=== PATIENT | male | born 1965 | race Caucasian/White ===

== ENCOUNTER 2017-07-15 20:19 | Outpatient (CLI) ==
[2014-09-01 12:18] VITALS: BMI 33.0
== END 2017-07-15 20:50 | disposition short-term general hospital (02) ==
LOC: AMBL 20:19
PROVIDERS: ATTEND Internal Medicine Geriatric Medicine
DX: R53.1 Weakness (principal); R42 Dizziness and giddiness; R00.0 Tachycardia, unspecified

== ENCOUNTER 2017-12-08 20:56 | Emergency (ER) ==
[2017-12-08 21:05] VITALS: BP 100/67; TEMP 98.6; BMI 32.0
--- NOTE | 2017-12-08 21:24 | ED.PDOC ---
General ED Provider: Dr. PHILL FLETCHER-ER Chief Complaint: Non-specific Complaint Stated Complaint: ema been tired for a month Time Seen by Physician: 21:22 Mode of Arrival: Walk-In Information Source: Patient Exam Limitations: No limitations Primary Care Provider: BRENT BIRD Nursing and Triage Documentation Reviewed and Agree: Yes Does patient meet sepsis criteria?: No System Inflammatory Response Syndrome: Not Applicable Sepsis Protocol: For patient's 13 years and over: Temp is 96.8 and below OR 101 and greater Pulse >90 BPM Resp >20/minute Acutely Altered Mental Status Are patient's symptoms suggestive of a new infection, such as: -Pneumonia -Skin, Soft Tissue -Endocarditis -UTI -Bone, Joint Infection -Implantable Device -Acute Abdominal Infection -Wound Infection -Meningitis -Blood Stream Catheter Infection -Unknown Miscellaneous Complaint Exam - Complex/Multi-System Complaint/Exam Onset/Duration: 4 weeks Symptoms Are: Still present Initial Severity: Mild Current Severity: Mild Location of Pain: no pain Associated Signs and Symptoms: Reports: Weakness. 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, Prior MRSA, Prior VRE, Recent trauma, Remote trauma Recent Echo/LV Function: No JVD Present: No Tachypnea Present: No Stridor Present: No Abdominal Findings: Present: Normal findings Glascow Coma Scale (see protocol): 15 Meningeal Signs Positive: No Focal Weakness: Present: None Focal Sensory Loss: Present: None Gait: Normal Gag Reflex Present: Yes Babinski Sign: Negative Right, Negative Left Skin Findings: Present: Normal findings Joint Swelling Present: No In-Dwelling Device Present: No Quality Indicator For Non-Traumatic Chest Pain/Syncope: EKG Performed Review of Systems - Review Of Systems Constitutional: Reports: No symptoms Eyes: Reports: No symptoms Ears, Nose, Mouth, Throat: Reports: No symptoms Respiratory: Reports: No symptoms, Other (snoring) Cardiac: Reports: No symptoms GI: Reports: No symptoms : Reports: No symptoms Musculoskeletal: Reports: No symptoms Skin: Reports: No symptoms Neurological: Reports: No symptoms Endocrine: Reports: No symptoms Hematologic/Lymphatic: Reports: No symptoms All Other Systems: Reviewed and Negative Past Medical History - Past Medical History Previously Healthy: No Endocrine: Reports: None Cardiovascular: Reports: None Respiratory: Reports: Other Hematological: Reports: None Gastrointestinal: Reports: None Genitourinary: Reports: None Neuro/Psych: Reports: None Musculoskeletal: Reports: Unknown 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 ) Other Pertinent Past Medical History: cancer - Surgical History General Surgical History: Reports: Tonsillectomy, Orthopedic (neck surgery), Other (EAR SURGERY) - Family History Family History: Reports: Unknown - Social History Smoking Status: Never smoker Hx Substance Use: No Alcohol Screening: Occasionally - Immunizations Tetanus Shot up to Date: Yes Physical Exam - Physical Exam Appearance: Well-appearing, No pain distress, Well-nourished Eyes: ANDRE, EOMI, Conjunctiva clear ENT: Ears normal, Nose normal, Oropharynx normal Neck: Supple Respiratory: Airway patent, Breath sounds clear, Breath sounds equal, Respirations nonlabored Cardiovascular: RRR, Pulses normal, No rub, No murmur GI/: Soft, Nontender, No masses, Bowel sounds normal, No Organomegaly Musculoskeletal: Normal strength, ROM intact, No edema, No calf tenderness Skin: Warm, Dry, Normal color Neurological: Sensation intact, Motor intact, Reflexes intact, Cranial nerves intact, Alert, Oriented Psychiatric: Affect appropriate, Mood appropriate Interpretation - EKG Interpretation Time of EKG #1: 21:25 Rate: Normal Rhythm: Sinus Ectopy: None [place]: NL ST Segment: Normal Interpretation: normal sinus rythym Critical Care Note - Critical Care Note Total Time (mins): 0 Course - Course Hematology/Chemistry: 12/08/17 21:20 12/08/17 21:20 Orders, Labs, Meds: Lab Review 12/08/17 12/08/17 12/08/17 21:15 21:15 21:20 WBC 8.17 RBC 4.71 Hgb 14.3 Hct 41.2 L MCV 87.5 MCH 30.4 MCHC 34.7 RDW Coeff of Cedric 12.4 Plt Count 158 Immature Gran % (Auto) 0.4 Neut % (Auto) 53.4 Lymph % (Auto) 37.1 [place] % (Auto) 5.8 Eos % (Auto) 2.7 Baso % (Auto) 0.6 Immature Gran # (Auto) 0.0 Neut # (Auto) 4.4 Lymph # (Auto) 3.0 [place] # (Auto) 0.5 Eos # (Auto) 0.2 Baso # (Auto) 0.1 Sodium Potassium Chloride Carbon Dioxide Anion Gap BUN Creatinine Estimated GFR (MDRD) BUN/Creatinine Ratio Glucose Hemoglobin A1c Calcium Total Bilirubin AST ALT Alkaline Phosphatase Total Protein Albumin Globulin Albumin/Globulin Ratio TSH Urine Color Yellow Urine Clarity Clear Urine pH 7.0 Ur Specific [place] 1.025 Urine Protein Negative Urine Glucose (UA) Negative Urine Ketones Negative Urine Blood Negative Urine Nitrite Negative Urine Bilirubin Negative Urine Urobilinogen 0.2 Ur Leukocyte Esterase Negative Urine Opiates Screen Negative Ur Oxycodone Screen Negative Urine Methadone Screen Negative Ur Propoxyphene Screen Negative Ur Barbiturates Screen Negative U Tricyclic Antidepress Negative Ur Phencyclidine Scrn Negative Ur Amphetamine Screen Negative U Methamphetamines Scrn Negative U Benzodiazepines Scrn Negative Urine Cocaine Screen Negative U Cannabinoids Screen Negative 12/08/17 12/08/17 21:20 21:20 WBC RBC Hgb Hct MCV MCH MCHC RDW Coeff of Cedric Plt Count Immature Gran % (Auto) Neut % (Auto) Lymph % (Auto) [place] % (Auto) Eos % (Auto) Baso % (Auto) Immature Gran # (Auto) Neut # (Auto) Lymph # (Auto) [place] # (Auto) Eos # (Auto) Baso # (Auto) Sodium 135.4 L Potassium 3.60 Chloride 101.2 Carbon Dioxide 28.0 Anion Gap 9.80 BUN 21.9 H Creatinine 1.09 Estimated GFR (MDRD) 72.00 BUN/Creatinine Ratio 20.09 Glucose 122.3 H Hemoglobin A1c 5.37 Calcium 9.25 Total Bilirubin 0.28 AST 17.9 ALT 15.2 Alkaline Phosphatase 66.7 Total Protein 6.50 Albumin 4.16 Globulin 2.34 Albumin/Globulin Ratio 1.77 TSH 1.440 Urine Color Urine Clarity Urine pH Ur Specific [place] Urine Protein Urine Glucose (UA) Urine Ketones Urine Blood Urine Nitrite Urine Bilirubin Urine Urobilinogen Ur Leukocyte Esterase Urine Opiates Screen Ur Oxycodone Screen Urine Methadone Screen Ur Propoxyphene Screen Ur Barbiturates Screen U Tricyclic Antidepress Ur Phencyclidine Scrn Ur Amphetamine Screen U Methamphetamines Scrn U Benzodiazepines Scrn Urine Cocaine Screen U Cannabinoids Screen Orders Category Date Time Status EKG-(ED ONLY) Stat CARDIO 12/08/17 20:58 Ordered CBC W/ AUTO DIFF Stat LAB 12/08/17 21:20 Completed COMPREHENSIVE METABOLIC PANEL Stat LAB 12/08/17 21:20 Completed HEMOGLOBIN A1C Stat LAB 12/08/17 21:20 Completed TSH [THYROID STIMULATING HORMONE] Stat LAB 12/08/17 21:20 Completed URINALYSIS C & S IF INDICATED Stat LAB 12/08/17 21:15 Completed URINE DRUG SCREEN (RAPID FOR ED) [DRUG SCREEN, URINE, LAB 12/08/17 21:15 Completed RAPID] Stat Vital Signs: Temp Pulse Resp BP Pulse Ox 12/08/17 21:01 98.6 F 74 20 100/67 95 Departure - Departure Time of Disposition: 22:14 Disposition: HOME SELF-CARE Discharge Problem: Fatigue Qualifiers: Fatigue type: unspecified Qualified Code(s): R53.83 - Other fatigue Instructions: Fatigue (ED) Condition: Good Pt referred to PMD for follow-up: Yes IPMP verified?: No Additional Instructions: f/u with your pcp for further testing--consider sleep study with snoring and daytime fatigue Allergies/Adverse Reactions: Allergies mold Adverse Reaction (Uncoded 12/08/17 21:05) Home Medications: Ambulatory Orders Ropinirole HCl [Requip] 1 mg PO BEDTIME 05/20/14 Bupropion HCl [Bupropion HCl Sr] 150 mg PO BID 09/01/14 Gabapentin 400 mg PO TID PRN 09/01/14 Escitalopram Oxalate [Lexapro] 10 mg PO DAILY #30 09/03/15 Atorvastatin Calcium [Lipitor] 20 mg PO DAILY 12/08/17 Hydrochlorothiazide 25 mg PO DAILY 12/08/17 Disposition Discussed With: Patient, Family
== END 2017-12-08 22:17 | disposition home or self-care (01) ==
LOC: ED 20:56
DX: R53.83 Other fatigue (principal); R53.1 Weakness; Z79.899 Other long term (current) drug therapy
CPT/HCPCS: 36415; 80053; 80306; 81001; 83036; 84443; 85025; 93005; 93010; 99283

== ENCOUNTER 2018-05-27 19:15 | Emergency (ER) ==
[2018-05-27 19:27] VITALS: BP 117/78; TEMP 97.4; BMI 31.6
--- NOTE | 2018-05-27 20:51 | ED.PDOC ---
General ED Provider: Dr. PHILL FLETCHER-ER Chief Complaint: Non-specific Complaint Stated Complaint: my bp was up at home--- Time Seen by Physician: 19:20 Mode of Arrival: Walk-In Information Source: Patient Exam Limitations: No limitations Primary Care Provider: DAVIDSON RIVERA Nursing and Triage Documentation Reviewed and Agree: Yes Does patient meet sepsis criteria?: No System Inflammatory Response Syndrome: Not Applicable Sepsis Protocol: For patient's 13 years and over: Temp is 96.8 and below OR 101 and greater Pulse >90 BPM Resp >20/minute Acutely Altered Mental Status Are patient's symptoms suggestive of a new infection, such as: -Pneumonia -Skin, Soft Tissue -Endocarditis -UTI -Bone, Joint Infection -Implantable Device -Acute Abdominal Infection -Wound Infection -Meningitis -Blood Stream Catheter Infection -Unknown Cardiovascular Complaint Exam - Hypertension Complaint/Exam Onset/Duration: today Symptoms Are: Still present Aggravating: Reports: None Associated Signs and Symptoms: Reports: Anxiety. Denies: Chest pain, Vision changes, Recent stress, Headache, Numbness, Tingling, Weakness, Dizziness, Short of air, Swelling Recent Change in Medications: No A/V [place]: No Papilledema Present: No JVD Present: No Carotid Bruit Present: No Femoral Pulses Bounding: No Differential Diagnoses: Hypertension Quality Indicator For Non-Traumatic Chest Pain/Syncope: EKG Performed Review of Systems - Review Of Systems Constitutional: Reports: No symptoms Eyes: Reports: No symptoms Ears, Nose, Mouth, Throat: Reports: No symptoms Respiratory: Reports: No symptoms Cardiac: Reports: No symptoms GI: Reports: No symptoms : Reports: No symptoms Musculoskeletal: Reports: No symptoms Skin: Reports: No symptoms Neurological: Reports: No symptoms Endocrine: Reports: No symptoms Hematologic/Lymphatic: Reports: No symptoms All Other Systems: Reviewed and Negative Past Medical History - Past Medical History Previously Healthy: No Endocrine: Reports: None Cardiovascular: Reports: None Respiratory: Reports: Other Hematological: Reports: None Gastrointestinal: Reports: None Genitourinary: Reports: None Neuro/Psych: Reports: None Musculoskeletal: Reports: Unknown 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 ) Other Pertinent Past Medical History: cancer - Surgical History General Surgical History: Reports: Tonsillectomy, Orthopedic (neck surgery), Other (EAR SURGERY) - Family History Family History: Reports: Unknown - Social History Smoking Status: Never smoker, Dips snuff Hx Substance Use: No Alcohol Screening: Occasionally - Immunizations Tetanus Shot up to Date: No (UNKNOWN) Physical Exam - Physical Exam Appearance: Well-appearing, No pain distress, Well-nourished Eyes: ANDRE, EOMI, Conjunctiva clear ENT: Ears normal, Nose normal, Oropharynx normal Neck: Supple Respiratory: Airway patent, Breath sounds clear, Breath sounds equal, Respirations nonlabored Cardiovascular: RRR, Pulses normal, No rub, No murmur GI/: Soft Musculoskeletal: Normal strength, ROM intact, No edema, No calf tenderness Skin: Warm, Dry, Normal color Neurological: Sensation intact, Motor intact, Reflexes intact, Cranial nerves intact, Alert, Oriented Psychiatric: Affect appropriate, Mood appropriate Interpretation - EKG Interpretation Time of EKG #1: 20:50 Rate: Normal Rhythm: Sinus Ectopy: None [place]: NL ST Segment: Normal Interpretation: nsr Critical Care Note - Critical Care Note Total Time (mins): 0 Course - Course Hematology/Chemistry: 05/27/18 19:50 05/27/18 19:50 Orders, Labs, Meds: Lab Review 05/27/18 05/27/18 05/27/18 19:35 19:45 19:50 WBC 12.17 H RBC 5.09 Hgb 15.2 Hct 44.1 MCV 86.6 MCH 29.9 MCHC 34.5 RDW Coeff of Cedric 12.0 Plt Count 219 Immature Gran % (Auto) 0.2 Neut % (Auto) 58.8 Lymph % (Auto) 32.9 [place] % (Auto) 5.8 Eos % (Auto) 1.9 Baso % (Auto) 0.4 Immature Gran # (Auto) 0.0 Neut # (Auto) 7.2 H Lymph # (Auto) 4.0 H [place] # (Auto) 0.7 Eos # (Auto) 0.2 Baso # (Auto) 0.1 Sodium Potassium Chloride Carbon Dioxide Anion Gap BUN Creatinine Estimated GFR (MDRD) BUN/Creatinine Ratio Glucose Calcium Total Bilirubin AST ALT Alkaline Phosphatase Total Creatine Kinase Troponin I Total Protein Albumin Globulin Albumin/Globulin Ratio TSH Free T4 Urine Color Yellow Urine Clarity Clear Urine pH 5.5 Ur Specific [place] >=1.030 Urine Protein Trace Urine Glucose (UA) Negative Urine Ketones Trace Urine Blood Negative Urine Nitrite Negative Urine Bilirubin Negative Urine Urobilinogen 0.2 Ur Leukocyte Esterase Negative Urine Microscopic WBC 0-2 Ur Squamous Epith Cells Not present Hyaline Casts 5-10 Urine Mucus Trace Influ A Molecular Assay Negative by naat Influ B Molecular Assay Negative by naat 05/27/18 05/27/18 19:50 19:50 WBC RBC Hgb Hct MCV MCH MCHC RDW Coeff of Cedric Plt Count Immature Gran % (Auto) Neut % (Auto) Lymph % (Auto) [place] % (Auto) Eos % (Auto) Baso % (Auto) Immature Gran # (Auto) Neut # (Auto) Lymph # (Auto) [place] # (Auto) Eos # (Auto) Baso # (Auto) Sodium 135.4 Potassium 3.40 L Chloride 98.8 Carbon Dioxide 25.5 Anion Gap 14.50 BUN 17.9 Creatinine 1.19 H Estimated GFR (MDRD) 64.00 BUN/Creatinine Ratio 15.04 Glucose 88.2 Calcium 9.67 Total Bilirubin 0.42 AST 11.4 L ALT 14.8 Alkaline Phosphatase 86.7 Total Creatine Kinase 99.4 Troponin I < 0.012 Total Protein 7.00 Albumin 4.78 Globulin 2.22 Albumin/Globulin Ratio 2.15 TSH 1.390 Free T4 1.06 Urine Color Urine Clarity Urine pH Ur Specific [place] Urine Protein Urine Glucose (UA) Urine Ketones Urine Blood Urine Nitrite Urine Bilirubin Urine Urobilinogen Ur Leukocyte Esterase Urine Microscopic WBC Ur Squamous Epith Cells Hyaline Casts Urine Mucus Influ A Molecular Assay Influ B Molecular Assay Orders Category Date Time Status EKG-(ED ONLY) Stat CARDIO 05/27/18 19:32 Ordered Spool Tender [ED SHOE PARTS MOLDER APPLIED] .ONCE EMERGENCY 05/27/18 19:32 Active CBC W/ AUTO DIFF Stat LAB 05/27/18 19:50 Completed COMPREHENSIVE METABOLIC PANEL Stat LAB 05/27/18 19:50 Completed CREATINE KINASE Stat LAB 05/27/18 19:50 Completed FLU A/B MOLECULAR Stat LAB 05/27/18 19:35 Completed FREE T4 (FREE THYROXINE) Stat LAB 05/27/18 19:50 Completed MOLECULAR GROUP A STREP Stat LAB 05/27/18 19:45 Completed TROPONIN I Stat LAB 05/27/18 19:50 Completed TSH [THYROID STIMULATING HORMONE] Stat LAB 05/27/18 19:50 Completed URINALYSIS C & S IF INDICATED Stat LAB 05/27/18 19:45 Completed Vital Signs: Temp Pulse Resp BP Pulse Ox 05/27/18 19:16 97.4 F L 102 H 18 117/78 95 DARIUS Risk Score DARIUS Risk Score: Risk Score Odds of by 30D 0 0.1 (0.1-0.2) 1 0.3 (0.2-0.3) 2 0.4 (0.3-0.5) 3 0.7 (0.6-0.9) 4 1.2 (1.0-1.5) 5 2.2 (1.9-2.6) 6 3.0 (2.5-3.6) 7 4.8 (3.8-6.1) Departure - Departure Time of Disposition: 20:51 Disposition: HOME SELF-CARE Discharge Problem: Elevated blood pressure reading Instructions: Chronic Hypertension (ED) Condition: Good Pt referred to PMD for follow-up: Yes IPMP verified?: No Additional Instructions: monitor bp at home---f/u with pcp Allergies/Adverse Reactions: Allergies mold Adverse Reaction (Uncoded 05/27/18 19:26) Home Medications: Ambulatory Orders Gabapentin 400 mg PO TID PRN 09/01/14 Atorvastatin Calcium [Lipitor] 20 mg PO DAILY 12/08/17 Clonazepam [Klonopin] 1 mg PO BEDTIME 02/07/18 Duloxetine HCl 60 mg PO BEDTIME 02/07/18 Hydroxyzine HCl 1 - 2 mg PO BEDTIME PRN #30 tab-cap 02/07/18 Lisinopril 20 mg PO DAILY 02/07/18 Ropinirole HCl [Ropinirole Er] 1 mg PO BEDTIME 02/07/18 Dextroamphetamine/Amphetamine [Adderall 30 mg Tablet] 15 mg PO BID 05/27/18 Disposition Discussed With: Patient, Family
== END 2018-05-27 20:58 | disposition home or self-care (01) ==
LOC: ED 19:15
DX: R03.0 Elevated blood-pressure reading, without diagnosis of hypertension (principal); Z72.0 Tobacco use; Z79.899 Other long term (current) drug therapy
CPT/HCPCS: 36415; 80053; 81001; 82550; 84439; 84443; 84484; 85025; 87502; 87651; 93005; 93010; 99283

== ENCOUNTER 2018-06-13 09:38 | Outpatient (CLI) | END 2018-06-13 09:39 | disposition home or self-care (01) | LOC: RHC-LAB 09:38 | PROVIDERS: ATTEND Nurse Practitioner Family | DX: B15.9 Hepatitis A without hepatic coma (principal) | CPT/HCPCS: 36415; 86708; 86709 ==